=== PATIENT | female | born 1990 | race Caucasian/White ===

== ENCOUNTER 2018-09-03 16:54 | Emergency (ER) | payer OTHER, MEDICAID ==
[~2018-09-03] VITALS: Ht 165.1 cm; Wt 79.8 kg
[~2018-09-03 16:54] MED LIST: CIPRO500 MG PO; IBUPROFEN 800800 M1 PO; ONDANSETRON HCL4 M2 PO; TRAMADOL 50 MG50 MG PO
[2018-09-03] MEDS ORDERED: ZOLOFT25 MG PO (17:03)
[2018-09-03] MEDS ORDERED: BIRTH CONTROL (17:04)
[2018-09-03] MEDS ORDERED: NORCO 5-325 TA1 EAC1 PO (18:11)
[2018-09-03] MEDS ORDERED: IBUPROFEN 800800 M1 PO (18:11)
[2018-09-03 18:28] VITALS: BP 148/92
== END 2018-09-03 18:31 | disposition home or self-care (01) ==
LOC: M.ERS 16:54
DX: T23.232A Burn of second degree of multiple left fingers (nail), not including thumb, initial encounter (principal); T23.252A Burn of second degree of left palm, initial encounter; T31.55 Burns involving 50-59% of body surface with 50-59% third degree burns; X08.8XXA Exposure to other specified smoke, fire and flames, initial encounter; Y93.89 Activity, other specified; Y92.89 Other specified places as the place of occurrence of the external cause; Y99.8 Other external cause status